=== PATIENT | male | born 1965 | race Caucasian/White ===

== ENCOUNTER 2017-01-30 19:11 | Emergency (ER) | payer MEDICAID, OTHER ==
[2017-01-30 19:22] VITALS: RESP 16; TEMP 98.4
[2017-01-30] MEDS ORDERED: TDAP ADULT 0.5 ML INJ (BOOSTRIX) IM ONE (20:55)
--- NOTE | 2017-01-30 20:55 | EDPHY ---
H & P Time Seen by Provider: 01/30/17 20:04 HPI/ROS: CHIEF COMPLAINT: Laceration left index finger HISTORY OF PRESENT ILLNESS: 51-year-old female presents to the emergency department with laceration to the left index finger. Patient was at work and accidentally cut his finger on a piece of metal at work. Incident happened just prior to arrival. He is right-hand dominant. He was able to control the bleeding with firm direct pressure. Denies any other trauma or injury. Unsure of his last tetanus shot. ROS: Denies numbness or tingling in his fingers, retained foreign body or other injuries. 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 Smoking Status: Light smoker Physical Exam: On examination the patient has a 2 cm laceration to the dorsal aspect of the left index finger overlying proximal phalanx. The laceration does not extend into the MCP or PIP joint. No palpable bony tenderness. No evidence of retained foreign body or ligament injury. The other fingers do not appear injured. He has full range of motion of his fingers. Constitutional: Initial Vital Signs Temperature (C) 36.9 C 01/30/17 19:18 Heart Rate 73 01/30/17 19:18 Respiratory Rate 16 01/30/17 19:18 Blood Pressure 121/67 H 01/30/17 19:18 O2 Sat (%) 95 01/30/17 19:18 O2 Delivery Mode Room Air Allergies/Adverse Reactions: acetaminophen [From Tylenol] Allergy (Intermediate, Verified 01/30/17 20:12) STOMACH UPSET ibuprofen Allergy (Intermediate, Verified 01/30/17 20:12) STOMACH UPSET morphine Allergy (Intermediate, Verified 01/30/17 20:12) STOMACH UPSET NSAIDS (Non-Steroidal Anti-Inflamma Allergy (Verified 01/30/17 20:12) Home Medications: Medication Instructions Recorded Protonix 40mg (*) 01/30/17 MDM/Departure - MDM Procedures: Laceration repair. Verbal consent was obtained from the patient. The 2 cm laceration on the left index finger was anesthetized using 1% lidocaine with epinephrine. The wound was irrigated with saline, draped and explored to its base with a gloved finger. There were no deep structures involved. No tendon injury was identified. The wound was repaired with 4 0 Ethilon, 3 sutures. The wound repair was simple. The procedure was performed by myself. ED Course/Re-evaluation: Patient's tetanus shot was updated. The laceration was repaired, see procedure note. He was given wound care precautions. - Depart Disposition: Home, Routine, Self-Care Clinical Impression: Laceration of left index finger Qualifiers: Encounter type: initial encounter Damage to nail status: without damage Foreign body presence: without foreign body Qualified Code(s): S61.211A - Laceration without foreign body of left index finger without damage to nail, initial encounter Condition: Good Instructions: Care For Your Stitches (ED), Laceration (ED), Acute Wounds (ED) Additional Instructions: Wound Care Follow-Up: Removal of sutures in 10 days. Suture removal is complimentary in uncomplicated cases. Infection or abnormal findings would require reevaluation by the MD. In that case, you may be billed. Return if he notices any signs or symptoms of infection such as redness, swelling, increased pain, fever, purulent drainage. You were given a tetanus shot today in the emergency department. Referrals: NONE *PRIMARY CARE P,. [Primary Care Provider] - As per Instructions
[2017-01-30 21:21] VITALS: BP 96/66; PULSE 59; O2SAT 96
== END 2017-01-30 21:21 | disposition home or self-care (01) ==
PROC: 0HQGXZZ Repair Left Hand Skin, External Approach (ICD-10-PCS; principal; 2017-01-30)
DX: S61.211A Laceration without foreign body of left index finger without damage to nail, initial encounter (principal); W26.8XXA Contact with other sharp object(s), not elsewhere classified, initial encounter; Y92.69 Other specified industrial and construction area as the place of occurrence of the external cause; Y99.0 Civilian activity done for income or pay; Y93.89 Activity, other specified; Z23 Encounter for immunization; F17.200 Nicotine dependence, unspecified, uncomplicated

== ENCOUNTER 2017-04-24 17:32 | Emergency (ER) | payer OTHER ==
[2017-04-24] MEDS ORDERED: HYDROmorphONE/DILAUDID 1 MG/ML INJ IVP ONE (17:59)
[2017-04-24] MEDS ORDERED: NS 1,000 ML IV ONE (17:59)
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
[2017-04-24 18:07] LABS: % IMMATURE GRANULYOCYTES 0.4 % (0.0-1.1); ABSOLUTE IMMATURE GRANULOCYTES 0.05 10^3/uL (0.00-0.10); ADD DIFF? NO; ADD MORPH? NO; ADD SCAN? NO; ATYPICAL LYMPHOCYTE FLAG 0 (0-99); FRAGMENT RBC FLAG 0 (0-99); HEMATOCRIT 48.6 % (40.0-51.0); HEMOGLOBIN 17.9 g/dL (13.7-17.5); LEFT SHIFT FLG 0 (0-99); LIPEMIA HEMOLYSIS FLAG 90 (0-99); MEAN CELL HEMOGLOBIN CONCENTR. 36.8 g/dL (32.4-36.7); MEAN CELL VOLUME 86.9 fL (81.5-99.8); MEAN PLATELET VOLUME 10.4 fL (8.7-11.7); PLATELET CLUMPS FLAG 0 (0-99); PLATELET COUNT 223 10^3/uL (150-400); RED BLOOD CELL COUNT 5.59 10^6/uL (4.40-6.38)
[2017-04-24 18:20] LABS: ANION GAP 15 mEq/L (8-16); CALCIUM 9.9 mg/dL (8.5-10.4); CARBON DIOXIDE 20 mEq/l (22-31); CHLORIDE 104 mEq/L (97-110); GLOMERULAR FILTRATION RATE > 60; GLUCOSE 118 mg/dL (70-100); SODIUM 139 mEq/L (134-144)
[2017-04-24] MEDS ORDERED: IOPAMIDOL (ISOVUE-300) 100 ML BTL ONE (18:27)
[2017-04-24 18:30] VITALS: RESP 16
[2017-04-24] MEDS ORDERED: LIDOCAINE 5% 1 EA PATCH TD ONE (19:56)
[2017-04-24] MEDS: LIDOCAINE 5% 1 EA PATCH TD ONE ×2 (20:18→20:21)
[2017-04-24 20:33] VITALS: BP 131/79; PULSE 80; TEMP 98.2; O2SAT 91
[2017-04-24] MEDS ORDERED: PATCH REMOVAL 1 EA PATCH TD SCH (21:00)
== END 2017-04-24 20:32 | disposition home or self-care (01) ==
DX: S22.42XA Multiple fractures of ribs, left side, initial encounter for closed fracture (principal); S43.402A Unspecified sprain of left shoulder joint, initial encounter; F17.200 Nicotine dependence, unspecified, uncomplicated; E86.9 Volume depletion, unspecified; V47.6XXA Car passenger injured in collision with fixed or stationary object in traffic accident, initial encounter; Y92.410 Unspecified street and highway as the place of occurrence of the external cause
CPT/HCPCS: 96374; A4565; J1170; Q9967